=== PATIENT | female | born 1950 | race Caucasian/White ===

== ENCOUNTER 2019-01-13 08:40 | Day surgery (SDC) | payer MEDICARE, OTHER ==
[~2019-01-13] VITALS: Ht 157.5 cm; Wt 68.5 kg
--- NOTE | ~2019-01-13 | OR ---
[facility] [address] [place] [address] [place] DATE OF OPERATION: 01/13/2019 SURGEON: tSoney Castro MD PREOPERATIVE DIAGNOSES: 1. Urinary urgency and frequency. 2. Recurrent urinary tract infection. POSTOPERATIVE DIAGNOSIS: Interstitial cystitis, hemorrhagic. NAMES OF PROCEDURES: 1. Diagnostic cystoscopy with right retrograde pyelogram. 2. Bladder biopsy with cauterization. 3. Simple Cheng catheter insertion. ANESTHESIA: General. ESTIMATED BLOOD LOSS: 25 mL. COMPLICATIONS: None. SPECIMENS: Bladder biopsy x1, sent to the lab for pathologic evaluation. DRAINS: A 22-Central African two-way Cheng catheter, connected to gravity drainage. INDICATIONS FOR PROCEDURE: Ms. Moya is a very pleasant 68-year-old female, who was recently seen by me for evaluation of urinary urgency and frequency symptoms. She also reported a history of recurrent UTIs, which made her urinary urgency and frequency symptoms worse. On evaluation, she was noted to have microscopic hematuria. She underwent diagnostic cystoscopy, which revealed diffuse erythema throughout the bladder wall along with areas of bladder wall contraction. There were a couple of areas of plaque-like erythema of which I could not rule out carcinoma in situ. This was explained to her and I recommended that she undergo a bladder biopsy to rule out the possibility of carcinoma PATIENT NAME: URIAH MOYA OPERATIVE REPORT DATE OF : 50 REPORT #: [id number] PHYSICIAN: STONEY CASTRO MD PCP: CASE MONTANEZ REPORT IS CONFIDENTIAL AND NOT TO BE RELEASED WITHOUT AUTHORIZATION [facility] [address] [place], [place] [address] Draft in situ as the cause of her irritative bladder symptoms. OPERATIVE FINDINGS: 1. On cystoscopy, there is no evidence of any obvious bladder masses or lesions that are immediately suspicious for malignancy. However, there are two plaque-like raised areas of erythema on the bilateral gordon of the bladder, along with areas of contracture noted. The patient's bladder bleeds quite easily and began to ooze blood just upon insertion of the cystoscope. 2. The gross hematuria became fairly significant and so I only had time to perform a right retrograde pyelogram. The hematuria became so severe that I was unable to see the left ureteral orifice in order to perform the right retrograde pyelogram. 3. Right retrograde pyelogram revealed no evidence of any ureteral filling defects, and revealed a normal renal pelvis and calices. 4. Due to the presence of active oozing in multiple areas of the patient's bladder, I inserted a resectoscope and cauterized these actively hemorrhaging areas using a 24-Central African bipolar loop. I then irrigated some of the small blood clots from the patient's bladder prior to insertion of a 22-Central African two-way Cheng catheter, connected to gravity drainage. 5. Along with cauterizing the bladder wall, I was able to obtain a small piece of tissue from the left lateral wall of the bladder in the vicinity of the one of these suspicious lesions using the bipolar loop. This specimen will be sent to pathology for evaluation. DESCRIPTION OF PROCEDURE: After informed consent was obtained, the patient was taken back to the operating room. [facility] was transferred [facility] to the operating room table, where general anesthesia was induced. She was placed in the dorsal lithotomy position and her genitalia were prepped and draped in a standard sterile fashion. Using a 30-degree lens on a 22-1/2-Central African introducer, rigid cystoscope was inserted through the urethra and into her bladder under direct visualization. Panendoscopic views of the bladder were then obtained, please see above findings. I advanced a cone-tipped catheter to the right ureteral orifice and a right retrograde pyelogram was performed. Please see above findings. The patient at this time had been oozing blood for a while and I lost visualization of the left ureteral orifice. Therefore, a left retrograde pyelogram was not performed. I removed the cystoscope and inserted a resectoscope and began to evaluate the bladder under continuous flow of irrigation fluid. I was able to appreciate the bilateral well-defined areas of erythema on the lateral gordon of the bladder. Using a 24-Central African loop, I did resect a small piece of tissue from the left-sided lesion and placed it in a specimen cup to be sent for evaluation. The biopsy bed was cauterized thoroughly, along with other actively oozing areas of the bladder wall. Once I was satisfied that all active oozing had been managed via cauterization, I removed the resectoscope and inserted a 22-Central African two-way Cheng catheter. The patient's bladder was irrigated thoroughly via the Cheng catheter. Prior to catheter placement, a PATIENT NAME: URIAH MOYA OPERATIVE REPORT DATE OF : 50 REPORT #: [id number] PHYSICIAN: STONEY CASTRO MD PCP: CASE MONTANEZ REPORT IS CONFIDENTIAL AND NOT TO BE RELEASED WITHOUT AUTHORIZATION [address] [address] [place] Kate syringe was also used to irrigate the patient's bladder. The patient's Cheng catheter was then connected to gravity drainage and the procedure was then terminated. The patient tolerated the procedure well without any complication. She will now be transferred to the postanesthesia care unit in stable condition. DISPOSITION: The patient will be discharge home later today when she awakes from anesthesia. I discussed the details of today's procedure with the patient's and answered his questions. I explained to him that the patient has a rather severe case of hemorrhagic cystitis and that she will require a fairly strict diet to avoid high acid foods and beverages in the future. She was given a prescription for belladonna and opioid suppositories today, along with Keflex and Pyridium as needed for dysuria. I also wrote the patient a prescription for Elmiron 100 mg p.o. t.i.d. for management of what appears to be [id number] interstitial cystitis. She will be scheduled to return to clinic in approximately 8 weeks to discuss her pathology results and to assess her response to the Elmiron. MD REBEKAH Hoyt/NICOLE /[id number] Copies: ~ PATIENT NAME: MARCKSANDYELANEVONVincenzoURIAH RENAE OPERATIVE REPORT DATE OF : 50 REPORT #: [id number] PHYSICIAN: STONEY CASTRO MD PCP: CASE MONTANEZ REPORT IS CONFIDENTIAL AND NOT TO BE RELEASED WITHOUT AUTHORIZATION
[~2019-01-13 08:40] MED LIST: DULOXETINE HCL30 MG PO; NORTRIPTYLINE H25 MG PO; TYLENOL325 M1 PO; VAGIFEM10 MCG VAGINAL; VITAMIN B-1250 MC1 PO; VITAMIN D2000 UNIT PO; ZYRTEC10 MG PO
--- NOTE | 2019-01-13 12:05 | NUR ---
01/13/19 1205 Sri Dodd 1152 PT ARRIVED IN PACU SLEEPY WITH ORAL AIRWAY IN PLACE. IVEY CATHETER PRESENT WITH RED COLORED DRAINAGE. DR AWARE WITH ORDERS TO RUN IV FLUID WIDE OPEN. LR RUNNING WIDE OPEN. IV SITE PATENT.
--- NOTE | 2019-01-13 13:10 | NUR ---
1245 PT BACK FROM PACU AWAKE AND ALERT DENIES PAIN, 2300ML IV FLUID GIVEN BETWEEN PACU AND SURGERY. 250ML OUT IN CATH IN PACU. PT TAKING SIPS OF WATER TOLERATES WELL.
--- NOTE | 2019-01-13 14:13 | NUR ---
1413 EMPTIED 800ML OF YELLOW URINE OUT OF PT CATH.
--- NOTE | 2019-01-13 15:21 | NUR ---
1500 IVEY CATH REMOVED PT TOLERATED WELL 600ML OF CLEAR URINE EMPTIED FOR IVEY BAG. PT EATING PUDDING TOLERATES WELL.
--- NOTE | 2019-01-13 15:51 | NUR ---
1530 PT EATING SANDWICH TOLERATES WELL.
--- NOTE | 2019-01-13 15:51 | NUR ---
1550 PT UP TO BATHROOM ABLE TO URINATE 100ML OF BLOOD TINGED URINE.
--- NOTE | 2019-01-13 16:13 | NUR ---
1600 PT TO BATHROOM AGAIN SHE URINATED 100ML BLOOD TINGED URINE. REPORTS A LITTLE BURNING BUT TOLERABLE.
== END 2019-01-13 16:10 | disposition home or self-care (01) ==
LOC: OPS 08:40 → DS 08:40 → OPS 10:30 → DS 10:30 → OPS 16:10
PROVIDERS: Urology
PROC: 0TBB8ZX Excision of Bladder, Via Natural or Artificial Opening Endoscopic, Diagnostic (ICD-10-PCS; principal; 2019-01-13 10:30)
PROC: BT1DZZZ Fluoroscopy of Right Kidney, Ureter and Bladder (ICD-10-PCS; 2019-01-13 10:30)
DX: N30.10 Interstitial cystitis (chronic) without hematuria (principal); K21.9 Gastro-esophageal reflux disease without esophagitis; K58.9 Irritable bowel syndrome, unspecified; F32.9 Major depressive disorder, single episode, unspecified; F41.9 Anxiety disorder, unspecified; Z88.2 Allergy status to sulfonamides; Z88.1 Allergy status to other antibiotic agents; Z79.899 Other long term (current) drug therapy
CPT/HCPCS: 00910; 74420; J0696; J1100; J1885; J2405; J2704; J3010; J7120; Q9967